=== PATIENT | female | born 1970 | race Caucasian/White ===

== ENCOUNTER 2020-04-06 14:05 | Outpatient (CLI) | payer OTHER, SELFPAY ==
--- NOTE | 2020-04-06 14:18 | MM_ITS ---
WS: [id number] BILATERAL DIGITAL SCREENING MAMMOGRAPHY WITH CAD CLINICAL INFORMATION: SCREENING HISTORY: Screening mammogram. Left breast pain COMPARISON: TECHNIQUE: Bilateral CC and MLO views. FINDINGS: The breasts are composed of heterogeneous fibroglandular density tissue, which can limit the detectio n of small underlying mass lesions. No suspicious mass, asymmetry, calcifications, or architectural d istortion. No evidence of malignancy. Punctate and secretory calcifications. MM/[place] [id number] IMPRESSION: BI-RADS: 2-Benign FOLLOW UP: 1 Year Follow-up Recommend return to annual screening mammography.
== END 2020-04-06 14:06 | disposition home or self-care (01) ==
PROVIDERS: PCP Family Medicine; Visit Provider Nurse Practitioner Family
DX: Z12.31 Encounter for screening mammogram for malignant neoplasm of breast (principal)
CPT/HCPCS: 77067

== ENCOUNTER 2021-01-07 12:43 | Outpatient (CLI) | payer OTHER, SELFPAY ==
--- NOTE | 2021-01-07 12:55 | MM_ITS ---
WS: [id number] ADDITIONAL VIEWS LEFT MAMMOGRAM LEFT BREAST ULTRASOUND HISTORY: LT BREAST LUMP 7 OCLOCK COMPARISON: 04/06/2020, 02/21/2019 LEFT MAMMOGRAM: Spot compression views and true ML. Palpable marker is placed along the inferomedial LEFT breast. No underlying soft tissue mass or calci fication. Normal parenchymal pattern. Ultrasound to follow. LEFT BREAST ULTRASOUND 2-D and color Doppler imaging submitted. Ultrasound directed to the palpable area. There is a small duct or cyst measuring 3 x 3 x 6 mm at 7:0 0, 1 cm from the nipple. At 6:00 there is a small cyst 1 cm from the nipple measuring 5 x 4 x 3 mm. N o solid mass. MM/[place] [id number] IMPRESSION: BI-RADS: 2-Benign FOLLOW UP: 1 Year Follow-up
== END 2021-01-07 12:44 | disposition home or self-care (01) ==
PROVIDERS: PCP Nurse Practitioner Family; Visit Provider Nurse Practitioner Family
DX: N63.24 Unspecified lump in the left breast, lower inner quadrant (principal)
CPT/HCPCS: 76642; 77065

== ENCOUNTER 2021-05-05 14:19 | Outpatient (CLI) | payer OTHER, SELFPAY ==
--- NOTE | 2021-05-05 14:38 | MM_ITS ---
WS: [id number] BILATERAL DIGITAL SCREENING MAMMOGRAPHY WITH CAD CLINICAL INFORMATION: SCREENING HISTORY: Screening mammogram. No current complaints. COMPARISON: January 07, 2021 TECHNIQUE: Bilateral CC and MLO views. FINDINGS: Scattered fibroglandular densities bilaterally. Stable benign punctate and secretory calcifications. Lucent centered calcifications. No suspicious focal mass, asymmetry, calcifications, or architectural distortion. No evidence of malignancy. MM/[place] [id number] IMPRESSION: BI-RADS: 2-Benign FOLLOW UP: 1 Year Follow-up Recommend return to annual screening mammography.
== END 2021-05-05 14:20 | disposition home or self-care (01) ==
LOC: RADSHAW 14:35
PROVIDERS: PCP Nurse Practitioner Family; Visit Provider Nurse Practitioner Family
DX: Z12.31 Encounter for screening mammogram for malignant neoplasm of breast (principal)
CPT/HCPCS: 77067

== ENCOUNTER 2022-06-28 14:52 | Outpatient (CLI) | payer OTHER, SELFPAY ==
--- NOTE | 2022-06-28 15:17 | MM_ITS ---
WS: [id number] BILATERAL 3D TOMOSYNTHESIS DIGITAL SCREENING MAMMOGRAPHY WITH CAD CLINICAL INFORMATION: SCREENING HISTORY: Screening mammogram. Chronic LEFT breast lumps and soreness. COMPARISON: May 05, 2021 TECHNIQUE: Bilateral CC and MLO views. FINDINGS: Scattered fibroglandular densities bilaterally. No suspicious focal mass, asymmetry, calcifications, or architectural distortion. No evidence of malignancy. Punctate and secretory calcifications. A few lucent centered calcifications. MM/[place] [id number] IMPRESSION: BI-RADS: 2-Benign FOLLOW UP: 1 Year Follow-up Recommend return to annual screening mammography.
== END 2022-06-28 14:53 | disposition home or self-care (01) ==
PROVIDERS: PCP Nurse Practitioner Family; Visit Provider Nurse Practitioner Family
DX: Z12.31 Encounter for screening mammogram for malignant neoplasm of breast (principal)
CPT/HCPCS: 77063; 77067

== ENCOUNTER 2024-01-17 12:59 | Outpatient (CLI) | payer OTHER, SELFPAY ==
--- NOTE | 2024-01-17 13:06 | MM_ITS ---
WS: [id number] BILATERAL 3D TOMOSYNTHESIS DIGITAL DIAGNOSTIC MAMMOGRAPHY WITH CAD CLINICAL INFORMATION: NIPPLE D/C HISTORY: LEFT nipple discharge COMPARISON: 2022 TECHNIQUE: Bilateral CC, MLO, and ML views. FINDINGS: Scattered fibroglandular densities bilaterally. Incidental punctate and secretory calcifications bila terally similar to previous. Ultrasound of the LEFT areola is pending. ULTRASOUND BREAST LEFT TECHNIQUE: Ultrasound left breast focused area of concern. CLINICAL INFORMATION: NIPPLE D/C FINDINGS: Ultrasound subareolar LEFT breast. Incidental ductal ectasia in the subareolar LEFT breast. Tiny slig htly dilated duct in the 1 o'clock position 1 cm from the nipple in the area of concern. No suspiciou s cystic or solid lesions. No suspicious lesions to target for biopsy. MM/MM diag BI tomosynthesis [id number] IMPRESSION: DENSITY: There are scattered areas of fibroglandular density. BI-RADS: 2 - Benign. FOLLOW UP: 1 Year Follow-up Recommend return to annual screening mammography.
== END 2024-01-17 13:00 | disposition home or self-care (01) ==
LOC: RAD 13:01
PROVIDERS: PCP Nurse Practitioner Family; Visit Provider Advanced Practice Midwife
DX: N64.52 Nipple discharge (principal); R92.323 Mammographic fibroglandular density, bilateral breasts; N60.42 Mammary duct ectasia of left breast
CPT/HCPCS: 76642; 77062; G0279